=== PATIENT | male | born 1940 | race Caucasian/White ===

== ENCOUNTER 2020-10-20 08:57 | Outpatient (RCR) | payer MEDICARE, SELFPAY ==
[2020-10-16] MEDS: COVID-19 VACC, MRNA(PFIZER)/PF 30 MCG/0.3 ML SYRINGE IM (13:28)
[2020-11-06] MEDS: COVID-19 VACC, MRNA(PFIZER)/PF 30 MCG/0.3 ML SYRINGE IM (13:42)
== END 2021-01-15 23:59 ==
LOC: IMMUN 08:57
PROVIDERS: Referring Provider Family Medicine; Visit Provider Family Medicine
DX: Z23 Encounter for immunization (principal)
CPT/HCPCS: 0001A; 0002A; 91300